=== PATIENT | male | born 1980 | race Caucasian/White ===

== ENCOUNTER 2019-08-16 08:28 | Emergency (ER) | payer OTHER ==
[~2019-08-16] VITALS: Ht 180.3 cm; Wt 104.3 kg
--- NOTE | 2019-08-16 08:31 | NUR ---
pt ambulatory to er bed 01 c/o diffuse abdominal pain w/ nausea and vomiting. cough and congestion since friday. afebrile. placed on monitor. vss. awaiting md perez.
--- NOTE | 2019-08-16 08:42 | NUR ---
dr sood at bedside for eval.
[2019-08-16] MEDS ORDERED: ONDANSETRON HCL/PF 4 MG/2 ML VIAL ONE (08:46)
[2019-08-16] MEDS ORDERED: KETOROLAC TROMETHAMINE INJ 30 MG/ML VIAL ONE (08:46)
[2019-08-16 08:58] LABS: BASOPHILS % (AUTO) 0.5 % (0.0-2.0); HEMATOCRIT 46 % (39-51); HEMOGLOBIN 15.5 g/dL (13.5-17.5); LYMPHOCYTES # (AUTO) 0.7 /CMM (0.8-4.8); MEAN CORPUSCULAR HGB CONC 34 g/dl (31.0-36.0); MEAN CORPUSCULAR VOLUME 90 fL (80-96); MONOCYTES # (AUTO) 0.8 /CMM (0.1-1.30); MONOCYTES % (AUTO) 16.8 % (2.0-12.0); NEUTROPHILS # (AUTO) 3.3 /CMM (1.8-8.9); NEUTROPHILS % (AUTO) 68.7 % (43.0-81.0); PLATELET COUNT (AUTO) 194 /CMM (150-450); RED BLOOD CELL COUNT(AUTO) 5.08 MIL/uL (4.5-6.0); WHITE BLOOD COUNT (AUTO) 4.8 K/uL (4.3-11.0)
--- NOTE | 2019-08-16 08:58 | NUR ---
radiology at bedside for chest xray.
[2019-08-16] MEDS ORDERED: IV NS 0.9% 1,000 ML BAG IV ONE (09:00)
[2019-08-16] MEDS ORDERED: ONDANSETRON HCL/PF 4 MG/2 ML VIAL IVP ONE (09:00)
[2019-08-16] MEDS ORDERED: KETOROLAC TROMETHAMINE INJ 30 MG/ML VIAL IV ONE (09:00)
[2019-08-16 09:04] LABS: CALCIUM, SERUM 9.2 mg/dL (8.5-10.1); CREATININE 1.3 mg/dL (0.6-1.3); POTASSIUM 3.6 mmol/L (3.5-5.1)
[2019-08-16 09:10] LABS: ALBUMIN 4.5 g/dL (3.4-5.0); BILIRUBIN,DIRECT 0.1 mg/dL (0.0-0.2); BILIRUBIN,TOTAL 0.6 mg/dL (0.2-1.0); TOTAL PROTEIN, SERUM 7.7 g/dL (6.4-8.2)
[2019-08-16 09:17] LABS: LYMPHOCYTES % (MANUAL) 15 % (16-48); MONOCYTES % (MANUAL) 14 % (0-11.0); NEUTROPHILS % (MANUAL) 71 (42-76)
[2019-08-16 09:59] VITALS: BP 154/99
--- NOTE | 2019-08-16 09:59 | NUR ---
Patient discharged to home in stable condition. Written and verbal after care instructions given. Patient verbalizes understanding of instruction.IV removed. Catheter intact and site benign. Pressure and 4x4 applied to site. No bleeding noted.
== END 2019-08-16 10:00 | disposition home or self-care (01) ==
LOC: ER 08:32
DX: J10.1 Influenza due to other identified influenza virus with other respiratory manifestations (principal); R11.2 Nausea with vomiting, unspecified; Z88.0 Allergy status to penicillin; Z88.8 Allergy status to other drugs, medicaments and biological substances; Z88.5 Allergy status to narcotic agent
CPT/HCPCS: 36415; 71045; 80048; 80076; 83690; 85025; 87804 ×2; 96361; 96374; 96375; 99284; J1885; J2405; J7030

== ENCOUNTER 2019-09-08 20:39 | Emergency (ER) | payer OTHER ==
[~2019-09-08] VITALS: Ht 177.8 cm; Wt 108.9 kg
--- NOTE | 2019-09-08 20:39 | NUR ---
CAME IN FOR L GREAT TO PAIN WITH REDNESS AND SWELLING S/P 200LB TRUNK FELL ON TOE, TO ER BED 6, HOOKED TO MONITOR, AWAITING MD RICO
--- NOTE | 2019-09-08 21:00 | NUR ---
HOME SERVICE CONSULTANT DEGRASSE AT BEDSIDE
--- NOTE | 2019-09-08 21:14 | NUR ---
ESCROW ASSISTANT AT BEDSIDE
--- NOTE | 2019-09-08 22:11 | NUR ---
tech at bedside for wound care
--- NOTE | 2019-09-08 22:14 | NUR ---
Patient discharged to home in stable condition. Written and verbal after care instructions given. Patient verbalizes understanding of instruction.
[2019-09-08 22:23] VITALS: BP 157/109
== END 2019-09-08 22:24 | disposition home or self-care (01) ==
LOC: ER 20:39
DX: S90.212A Contusion of left great toe with damage to nail, initial encounter (principal); I10 Essential (primary) hypertension; Z88.0 Allergy status to penicillin; Z88.5 Allergy status to narcotic agent; Z88.8 Allergy status to other drugs, medicaments and biological substances; W20.8XXA Other cause of strike by thrown, projected or falling object, initial encounter; Y93.89 Activity, other specified; Y92.89 Other specified places as the place of occurrence of the external cause; Y99.8 Other external cause status
CPT/HCPCS: 11740; 73660; 99283; A6403

== ENCOUNTER 2020-11-21 05:17 | Emergency (ER) | payer OTHER ==
[~2020-11-21] VITALS: Ht 177.8 cm; Wt 115.7 kg
--- NOTE | 2020-11-21 06:11 | NUR ---
PT AAOX4. AMBULATORY WITH STEADY GAIT. C/O VOMITING X2 DAYS. PT PLACED IN BED 9 ON MONITOR AND PULSE OX. IV RAC 18G, BLOOD WORK COLLECTED, SENT TO LAB. AWAITING ER MD FOR EVAL AND ORDERS.
[2020-11-21] MEDS ORDERED: ONDANSETRON HCL/PF 4 MG/2 ML VIAL IVP ONE (06:30)
[2020-11-21] MEDS ORDERED: IV NS 0.9% 1,000 ML BAG IV ONE (06:30)
[2020-11-21] MEDS ORDERED: ONDANSETRON HCL/PF 4 MG/2 ML VIAL ONE ×2 (06:30→10:01)
--- NOTE | 2020-11-21 06:45 | NUR ---
URINE COLLECTED, SENT TO LAB.
[2020-11-21 07:02] LABS: BASOPHILS % (AUTO) 0.3 % (0.0-2.0); EOSINOPHILS % (AUTO) 0.4 % (0.0-6.0); HEMATOCRIT 44 % (39-51); HEMOGLOBIN 14.6 g/dL (13.5-17.5); LYMPHOCYTES # (AUTO) 1.1 /CMM (0.8-4.8); MEAN CORPUSCULAR HGB CONC 33 g/dl (31.0-36.0); MEAN CORPUSCULAR VOLUME 91 fL (80-96); MONOCYTES # (AUTO) 0.6 /CMM (0.1-1.30); MONOCYTES % (AUTO) 11.1 % (2.0-12.0); NEUTROPHILS # (AUTO) 3.9 /CMM (1.8-8.9); NEUTROPHILS % (AUTO) 69.2 % (43.0-81.0); PLATELET COUNT (AUTO) 234 /CMM (150-450); RED BLOOD CELL COUNT(AUTO) 4.88 MIL/uL (4.5-6.0); WHITE BLOOD COUNT (AUTO) 5.7 K/uL (4.3-11.0)
[2020-11-21 07:23] LABS: ALBUMIN 4.4 g/dL (3.4-5.0); BILIRUBIN,DIRECT 0.1 mg/dL (0.0-0.2); BILIRUBIN,TOTAL 0.5 mg/dL (0.2-1.0); CALCIUM, SERUM 9.3 mg/dL (8.5-10.1); CREATININE 1.3 mg/dL (0.6-1.3); POTASSIUM 3.8 mmol/L (3.5-5.1); TOTAL PROTEIN, SERUM 7.8 g/dL (6.4-8.2)
[2020-11-21 07:33] LABS: BILIRUBIN,URINE NEGATIVE (NEGATIVE); COLOR,URINE YELLOW (YELLOW); LEUKOCYTE ESTERASE ,URINE NEGATIVE (NEGATIVE); NITRITE, URINE NEGATIVE (NEGATIVE); PROTEIN,URINE NEGATIVE (NEGATIVE); UGLUCOSE NEGATIVE (NEGATIVE); UROBILINOGEN,URINE 0.2 EU/dL (0.2)
[2020-11-21 07:48] LABS: RBC,URINE 0-2 /HPF (0-2)
[2020-11-21 07:49] LABS: BACTERIA,URINE Rare /HPF (None Seen); CALCIUM OXALATE CRYSTALS,UR Many /HPF (None Seen); SQUAMOUS EPITHELIAL CELL,UR Rare /HPF (None Seen); WBC,URINE 0-2 /HPF (0-3)
[2020-11-21] MEDS ORDERED: IV NS 0.9% 1,000 ML IV ONE (10:00)
[2020-11-21] MEDS ORDERED: ONDANSETRON HCL/PF 4 MG/2 ML VIAL IV ONE (10:00)
[2020-11-21 10:38] VITALS: BP 128/75
--- NOTE | 2020-11-21 10:38 | NUR ---
Patient discharged to home in stable condition. Written and verbal after care instructions given. Patient verbalizes understanding of instruction. The patient left ER in stable condition.
== END 2020-11-21 10:38 | disposition home or self-care (01) ==
LOC: ER 05:19
DX: K52.9 Noninfective gastroenteritis and colitis, unspecified (principal); K57.30 Diverticulosis of large intestine without perforation or abscess without bleeding; R11.2 Nausea with vomiting, unspecified; E88.89 Other specified metabolic disorders; K44.9 Diaphragmatic hernia without obstruction or gangrene; N28.1 Cyst of kidney, acquired; I10 Essential (primary) hypertension; Z88.0 Allergy status to penicillin; Z88.5 Allergy status to narcotic agent; Z88.8 Allergy status to other drugs, medicaments and biological substances
CPT/HCPCS: 36415; 74176; 76770; 80048; 80076; 81001; 83690; 85025; 96361; 96374; 96376; 99285; J2405 ×2; J7030 ×2

== ENCOUNTER 2021-10-22 13:51 | Inpatient (IN) | payer BC, OTHER ==
[~2021-10-22] VITALS: Ht 177.8 cm; Wt 116.1 kg
--- NOTE | 2021-10-22 14:10 | NUR ---
BIBSELF C/O LOWER ABD PAIN, NAUSEA&VOMITTING SINCE LAST NIGHT. AMBULATORY, IN PAIN
[2021-10-22] MEDS ORDERED: ONDANSETRON HCL/PF 4 MG/2 ML VIAL ONE (14:22)
--- NOTE | 2021-10-22 14:26 | NUR ---
R AC 20G ESTABLISHED. LABS DRAWN AND COLLECTED AT BEDSIDE. CONVERTED TO SALINE LOCK
[2021-10-22] MEDS ORDERED: IV NS 0.9% 1,000 ML BAG IV ONE (14:30)
[2021-10-22] MEDS ORDERED: ONDANSETRON HCL/PF 4 MG/2 ML VIAL IVP ONE (14:30)
[2021-10-22 14:39] LABS: BASOPHILS % (AUTO) 0.2 % (0.0-2.0); EOSINOPHILS % (AUTO) 0.1 % (0.0-6.0); HEMATOCRIT 43 % (39-51); HEMOGLOBIN 14.1 g/dL (13.5-17.5); LYMPHOCYTES # (AUTO) 1.5 K/uL (0.8-4.8); LYMPHOCYTES % (AUTO) 8.6 % (20.0-44.0); MEAN CORPUSCULAR HGB CONC 33 g/dl (31.0-36.0); MEAN CORPUSCULAR VOLUME 90 fL (80-96); MONOCYTES # (AUTO) 1.3 K/uL (0.1-1.30); MONOCYTES % (AUTO) 7.3 % (2.0-12.0); NEUTROPHILS # (AUTO) 14.4 K/uL (1.8-8.9); NEUTROPHILS % (AUTO) 83.8 % (43.0-81.0); PLATELET COUNT (AUTO) 244 K/uL (150-450); RED BLOOD CELL COUNT(AUTO) 4.78 MIL/uL (4.5-6.0); WHITE BLOOD COUNT (AUTO) 17.2 K/uL (4.3-11.0)
[2021-10-22 14:50] LABS: CREATININE 1.4 mg/dL (0.6-1.3); POTASSIUM 3.8 mmol/L (3.5-5.1)
[2021-10-22 14:55] LABS: ALBUMIN 4.1 g/dL (3.4-5.0); BILIRUBIN,DIRECT 0.2 mg/dL (0.0-0.2); BILIRUBIN,TOTAL 1.3 mg/dL (0.2-1.0); TOTAL PROTEIN, SERUM 7.5 g/dL (6.4-8.2)
--- NOTE | 2021-10-22 15:50 | NUR ---
PATIENT STILL VOMITING. MD INFORMED.
[2021-10-22] MEDS ORDERED: PROCHLORPERAZINE EDISYLATE 10 MG/2 ML VIAL ONE (15:54)
[2021-10-22] MEDS ORDERED: CIPROFLOXACIN IV RTU 400 MG in PREMIX 1 EA IV SCH (16:00)
[2021-10-22] MEDS ORDERED: PROCHLORPERAZINE EDISYLATE 10 MG/2 ML VIAL IVP ONE (16:00)
[2021-10-22] MEDS ORDERED: AMLO2.5T4 PO (16:05)
[2021-10-22] MEDS ORDERED: FAMO40TA7 PO (16:05)
[2021-10-22] MEDS ORDERED: LISI-768 PO (16:05)
[2021-10-22 16:06] LABS: BILIRUBIN,URINE NEGATIVE (NEGATIVE); COLOR,URINE YELLOW (YELLOW); LEUKOCYTE ESTERASE ,URINE NEGATIVE (NEGATIVE); NITRITE, URINE NEGATIVE (NEGATIVE); PROTEIN,URINE TRACE mg/dl (NEGATIVE); UGLUCOSE NEGATIVE (NEGATIVE); UROBILINOGEN,URINE 0.2 EU/dL (0.2)
--- NOTE | 2021-10-22 16:10 | NUR ---
PAGED DR. ALAN
[2021-10-22 16:13] LABS: BACTERIA,URINE RARE /HPF (None Seen); WBC,URINE 0-2 /HPF (0-3)
[2021-10-22 16:14] LABS: MUCUS,URINE Few /LPF (None Seen); SQUAMOUS EPITHELIAL CELL,UR 0-2 /HPF (None Seen)
[2021-10-22] MEDS: METRONIDAZOLE 500MG/ NS 100ML 500 MG in PREMIX 1 EA IV SCH ×2 (16:30→23:05)
[2021-10-22] MEDS ORDERED: Z GUARD REMEDY 4 OZ OINT TP PRN (16:30)
--- NOTE | 2021-10-22 16:31 | NUR ---
COVID SWAB DONE AND SENT TO THE LAB.
--- NOTE | 2021-10-22 17:00 | NUR ---
LACTIC ACID 2.8, MADE DR URIBE AWARE
--- NOTE | 2021-10-22 17:05 | NUR ---
BED 306-1 PER NURSING SUP. FRONT ADMIN NOTIFIED.
--- NOTE | 2021-10-22 18:21 | NUR ---
REPORT GIVEN TO NURSE RASMUSSEN FOR ASIA
--- NOTE | 2021-10-22 18:30 | NUR ---
THE PATIENT IS TRANSFERED TO ROOM 306-1 IN STABLE CONDITION AND PER POLICY.
--- NOTE | 2021-10-22 18:45 | NUR ---
MS RN ADMITTING NOTES RECEIVIED PATIENT FROM ER. MEDICALLY STABLE. VS BP: 162/88 HR 80 T 98.0 O2 97% MILD ABDOMINAL PAIN AT THIS TIME. WILL ENDORSE TO GIFT BASKET PACKER NURSE FOR ASIA.
--- NOTE | 2021-10-22 19:30 | NUR ---
MS RN ADMITTING NOTES PT RECEIVED I BED ASLEEP BUT EASILY WOKEN UP. PT A/O X4 NO RESPIRATORY DISTRESS NOTED. NO PAIN OR DISCOMFORT NOTED AT THIS TIME. ON ROOM AIR TOLERATING WELL. PT ABLE TO AMBULATE WITH STEADY GAIT. PT REFUSED SKIN ASSESSMENT DENIES ANY DISCOLORATION OR WOUNDS. PT ORDER FOR NPO PT AWARE. PT STARTED ON NS @125ML/HR PT HAS IV ACCESS ON THE LAC 20G INTACT. FLUSHING WELL. PT ORIENTED TO ROOM AND UNIT. INSTRUCTED ON HOW TO USE CALL LIGHT CALL LIGHT PLACED WITHIN REACH. PT CONFIRMED ONLY MEDICAL HX IS HTN PT CONFIRMED ALLERGIES. PT FOR SX EVALUATION TOMORROW. ALL NEEDS MET AT THIS TIME. WILL CONTINUE TO MONITOR.
[2021-10-22 20:00] VITALS: BP 114/72
--- NOTE | 2021-10-22 20:47 | NUR ---
MS RN NOTES PT SEEN BY DR ALAN ,PER DR ALAN OK TO HAVE MINIMAL AMOUNT OF ICE CHIPS (ONE CUP EVERY 8HRS IS OKAY). WILL CONTINUE TO MONITOR.
--- NOTE | 2021-10-22 20:51 | NUR ---
MS RN NOTES SPOKE TO DR BLAKE DERMENDIAN REGARDING PT CODEINE ALLERGY AND THE MORPHINE PRESCRIPTION VERIFIED WITH PT HE HAS RECEIVED MORPHINE IN THE PAST WITH NO ISSUES AND CODEINE ALLERGY REACTIONS REPORTED TO DR. PER DR HAYDEN MORALES TO GIVE MORPHINE CALLED PHARMACY AND LET THEM KNOW. WILL CONTINUE TO MONITOR.
[2021-10-23] MEDS: CIPROFLOXACIN IV RTU 400 MG in PREMIX 1 EA IV SCH ×2 (04:43→17:15)
[2021-10-23] MEDS: ONDANSETRON HCL/PF 4 MG/2 ML VIAL IVP PRN ×3 (05:29→20:02)
--- NOTE | 2021-10-23 05:35 | NUR ---
MS RN NOTES PRN ZOFRAN GIVEN FOR N/V TOLERATED WELL. WILL CONTINUE TO MONITOR.
[2021-10-23] MEDS: METRONIDAZOLE 500MG/ NS 100ML 500 MG in PREMIX 1 EA IV SCH ×3 (05:55→20:02)
--- NOTE | 2021-10-23 06:29 | NUR ---
MS RN CLOSING NOTES PT A/O X4 NO RESPIRATORY DISTRESS NOTED. NO PAIN OR DISCOMFORT NOTED AT THIS TIME. ON ROOM AIR TOLERATING WELL. PT ABLE TO AMBULATE WITH STEADY GAIT. PT REFUSED SKIN ASSESSMENT DENIES ANY DISCOLORATION OR WOUNDS. PT ORDER FOR NPO PT AWARE. PT ON NS @125ML/HR PT HAS IV ACCESS ON THE LAC 20G INTACT. FLUSHING WELL. PT ORIENTED TO ROOM AND UNIT. INSTRUCTED ON HOW TO USE CALL LIGHT CALL LIGHT PLACED WITHIN REACH. TABLE WITHIN REACH. ALL NEEDS MET AT THIS TIME. WILL CONTINUE TO MONITOR. WILL ENDORSE CARE TO DAY SHIFT NURSE.
[2021-10-23 06:57] LABS: BASOPHILS % (AUTO) 0.1 % (0.0-2.0); HEMATOCRIT 38 % (39-51); HEMOGLOBIN 12.7 g/dL (13.5-17.5); MEAN CORPUSCULAR HGB CONC 33 g/dl (31.0-36.0); MEAN CORPUSCULAR VOLUME 89 fL (80-96); MONOCYTES # (AUTO) 0.8 K/uL (0.1-1.30); MONOCYTES % (AUTO) 5.7 % (2.0-12.0); NEUTROPHILS # (AUTO) 12.7 K/uL (1.8-8.9); NEUTROPHILS % (AUTO) 87.2 % (43.0-81.0); PLATELET COUNT (AUTO) 206 K/uL (150-450); RED BLOOD CELL COUNT(AUTO) 4.27 MIL/uL (4.5-6.0); WHITE BLOOD COUNT (AUTO) 14.6 K/uL (4.3-11.0)
[2021-10-23 07:12] LABS: ALBUMIN 3.3 g/dL (3.4-5.0); BILIRUBIN,TOTAL 1.1 mg/dL (0.2-1.0); CREATININE 1.1 mg/dL (0.6-1.3); POTASSIUM 3.5 mmol/L (3.5-5.1); TOTAL PROTEIN, SERUM 6.6 g/dL (6.4-8.2)
--- NOTE | 2021-10-23 07:28 | NUR ---
MS RN OPENING NOTES PATIENT RECEIVED AWAKE IN BED IN NO ACUTE SIGNS OF DISTRESS. A/OX4, ABLE TO MAKE NEEDS KNOWN, DENIES PAIN OR ANY DISCOMFORTS AT THIS TIME. NPO MAINTAINED. ON ROOM AIR, TOLERATING WELL, BREATHING EVEN AND UNLABORED. IV ACCESS ON L AC #20G INTACT AND PATENT WITH IVF OF NS @ 125ML/HR INFUSING WELL, NO S/S OF INFILTRATIONS NOTED. SAFETY PRECAUTIONS MAINTAINED; BED LOCKED AND IN LOW POSITION, SIDE RAILS X2 UP AND CALL LIGHT WITHIN REACH. CONTINUE TO MONITOR PT ACCORDINGLY.
[2021-10-23 08:00] VITALS: BP 184/96
[2021-10-23] MEDS: LISINOPRIL (5MG) 5 MG TABLET PO SCH (08:39)
[2021-10-23] MEDS: AMLODIPINE BESYLATE 2.5 MG TABLET PO SCH (08:39)
[2021-10-23] MEDS: FAMOTIDINE (20 MG) 20 MG TABLET PO SCH (08:39)
--- NOTE | 2021-10-23 10:51 | NUR ---
RN NOTES DR ANDREWS WITH ORDER TO PUT PT ON NPO EXCEPT ORAL MEDS WITH SIP OF WATER.
[2021-10-23] MEDS: MORPHINE SULFATE INJ 2 MG/ML DISP.SYRIN IV PRN ×3 (12:02→22:41)
--- NOTE | 2021-10-23 12:04 | NUR ---
RN NOTES PT C/O BURNING ACHING MID LOWER ABDOMINAL PAIN, 8/10 SCALE WITH NAUSEA, PRN MORPHINE 1 MG/0.5ML IVP AND ZOFRAN 4MG/2NL ADMINISTERED ORDERED. WILL CONTINUE TO MONITOR AND REASSESS PT
[2021-10-23 15:53] VITALS: BP 150/83
[2021-10-23] MEDS: IV NS 0.9% 1,000 ML IV PRN (17:12)
--- NOTE | 2021-10-23 17:13 | NUR ---
RN NOTES PT C/O SHARP ACHING MID LOWER ABDOMINAL PAIN, 10/10 SCALE , PRN MORPHINE 1 MG/0.5ML IVP ADMINISTERED AT 1711. WILL CONTINUE TO MONITOR AND REASSESS PT.
--- NOTE | 2021-10-23 18:53 | NUR ---
MS RN CLOSING NOTES PATIENT IN BED WATCHING TV AT THIS TIME. A/OX4, ABLE TO MAKE NEEDS KNOWN. NPO EXCEPT MEDS MAINTAINED, PT IS AWARE. ON ROOM AIR, TOLERATING WELL, BREATHING EVEN AND UNLABORED. IV ACCESS ON L AC #20G INTACT AND PATENT, IVF OF NS @ 125ML/HR INFUSING WELL, NO S/S OF INFILTRATIONS NOTED. ALL NEEDS AND CARE ATTENDED WELL. SAFETY PRECAUTIONS MAINTAINED; BED LOCKED AND IN LOW POSITION, SIDE RAILS UP X2 UP AND CALL LIGHT WITHIN REACH. WILL ENDORSE ASIA TO [employer] AND SERVICE DIRECTOR NURSE.
--- NOTE | 2021-10-23 19:10 | NUR ---
MS RN OPENING NOTES: RECEIVED PATIENT IN BED, AWAKE, A/O X4. NO S/S OF DISTRESS NOTED. NO COMPLAIN OF PAIN. CALL LIGHT WITHIN REACH. BEDIN LOWEST AND LOCKED POSITION. URINAL AT THE BEDSIDE. NPO EXCEPT MEDS AND ICE CHIPS, PATIENT VERBALIZED UNDERSTANDING.
[2021-10-23 20:04] VITALS: BP 167/94
--- NOTE | 2021-10-23 20:15 | NUR ---
COMPLAINED OF NAUSEA, PRN ZOFRAN IV GIVEN.
--- NOTE | 2021-10-23 22:58 | NUR ---
right hand IV G22 inserted by CHARGE NURSE JUAN J.
[2021-10-24] MEDS: ACETAMINOPHEN 325 MG TABLET PO PRN ×2 (03:53→20:37)
[2021-10-24] MEDS: IV NS 0.9% 1,000 ML IV PRN ×2 (05:42→20:17)
[2021-10-24] MEDS: CIPROFLOXACIN IV RTU 400 MG in PREMIX 1 EA IV SCH ×2 (05:43→16:39)
[2021-10-24] MEDS: METRONIDAZOLE 500MG/ NS 100ML 500 MG in PREMIX 1 EA IV SCH ×3 (06:52→20:15)
--- NOTE | 2021-10-24 07:20 | NUR ---
MS RN OPENING NOTES PATIENT RECEIVED ASLEEP IN BED IN NO ACUTE SIGNS OF DISTRESS. PATIENT IS EASILY AWAKEN. A/OX4, ABLE TO MAKE NEEDS KNOWN, DENIES PAIN OR ANY DISCOMFORTS AT THIS TIME. NPO MAINTAINED. ON ROOM AIR, TOLERATING WELL, BREATHING EVEN AND UNLABORED. IV ACCESS ON R HAND #20G INTACT AND PATENT WITH IVF OF NS @ 125ML/HR INFUSING WELL, NO S/S OF INFILTRATIONS NOTED. SAFETY PRECAUTIONS MAINTAINED; BED LOCKED AND IN LOW POSITION, SIDE RAILS X2 UP AND CALL LIGHT WITHIN REACH. WILL CONTINUE TO MONITOR PT ACCORDINGLY.
[2021-10-24] MEDS: ONDANSETRON HCL/PF 4 MG/2 ML VIAL IVP PRN (07:52)
[2021-10-24 08:00] VITALS: BP 152/87
--- NOTE | 2021-10-24 08:00 | NUR ---
Patient complained of nausea and vomiting. Per patient he vomited 2 times continuously. Patient was given Zofran IVP at 4mg/2ml as ordered PRN at 0752. Will continue to monitor and reassess patient.
[2021-10-24] MEDS: AMLODIPINE BESYLATE 2.5 MG TABLET PO SCH (08:29)
[2021-10-24] MEDS: LISINOPRIL (5MG) 5 MG TABLET PO SCH (08:29)
[2021-10-24] MEDS: FAMOTIDINE (20 MG) 20 MG TABLET PO SCH (08:33)
--- NOTE | 2021-10-24 10:29 | NUR ---
PATIENT WAS SEEN BY DR. ANDREWS. PATIENT REQUESTED IF HE CAN HAVE ANOTHER ANTIEMETIC MEDICATION IN ADDITION TO THE ORDERED ZOFRAN. DR. ANDREWS ORDERED REGLAN 10MG IV Q6HRS PRN.
[2021-10-24] MEDS: METOCLOPRAMIDE HCL 10 MG/2 ML VIAL IV PRN ×2 (12:14→20:15)
--- NOTE | 2021-10-24 12:16 | NUR ---
Patient complained of nausea and vomiting. Patient was given Reglan 10mg IVP at 1214 as ordered PRN. Will continue to monitor and reassess patient.
[2021-10-24 13:00] LABS: BASOPHILS % (AUTO) 0.1 % (0.0-2.0); EOSINOPHILS % (AUTO) 0.1 % (0.0-6.0); HEMATOCRIT 38 % (39-51); HEMOGLOBIN 12.6 g/dL (13.5-17.5); LYMPHOCYTES % (AUTO) 6.7 % (20.0-44.0); MEAN CORPUSCULAR HGB CONC 33 g/dl (31.0-36.0); MEAN CORPUSCULAR VOLUME 90 fL (80-96); MONOCYTES # (AUTO) 0.9 K/uL (0.1-1.30); MONOCYTES % (AUTO) 6.6 % (2.0-12.0); NEUTROPHILS # (AUTO) 12.4 K/uL (1.8-8.9); NEUTROPHILS % (AUTO) 86.5 % (43.0-81.0); PLATELET COUNT (AUTO) 200 K/uL (150-450); RED BLOOD CELL COUNT(AUTO) 4.25 MIL/uL (4.5-6.0); WHITE BLOOD COUNT (AUTO) 14.3 K/uL (4.3-11.0)
[2021-10-24] MEDS: MORPHINE SULFATE INJ 2 MG/ML DISP.SYRIN IV PRN (14:21)
--- NOTE | 2021-10-24 14:23 | NUR ---
Patient complained of pain in the lower abdomen with a pain scale level of 9/10. Patient was given morphine 1mg IVP at 1421 as ordered PRN. Will continue to monitor and reassess patient.
--- NOTE | 2021-10-24 14:55 | NUR ---
RN NOTES PATIENT'S COMPLAINED OF SLIGHT DISCOMFORT IN HIS RIGHT HAND AND REQUESTED TO REMOVE RIGHT HAND IV ACCESS AND CHANGE THE SITE. REMOVED IV ACCESS IN THE RIGHT HAND WITH NO BLEEDING NOTED. NEW IV ACCESS INSERTED IN LEFT HAND GAUGE #22. IVF CONTINUED ORDERED.
--- NOTE | 2021-10-24 15:21 | NUR ---
RN NOTES PT STATED THAT HE'S ABDOMINAL PAIN MORE SEVERE THAN USUAL AND ABDOMEN MORE DISTENDED THIS AFTERNOON. DR ANDREWS MADE AWARE WITH ORDER TO DO REPEAT CT OF ABDOMEN AND PELVIS W/O CONTRAST.
--- NOTE | 2021-10-24 15:28 | NUR ---
RN NOTES PT PICKED-UP VIA WHEELCHAIR FOR CT ABD AND PELVIS.
[2021-10-24 16:00] VITALS: BP 161/90
--- NOTE | 2021-10-24 18:31 | NUR ---
MS RN CLOSING NOTES PATIENT IN ASLEEP IN BED. EASILY AWAKEN. A/OX4, ABLE TO MAKE NEEDS KNOWN. NPO EXCEPT MEDS MAINTAINED, PT IS AWARE. ON ROOM AIR, TOLERATING WELL, BREATHING EVEN AND UNLABORED. IV ACCESS ON L HAND #22G INTACT AND PATENT, IVF OF NS @ 125ML/HR INFUSING WELL, NO S/S OF INFILTRATIONS NOTED. ALL NEEDS AND CARE ATTENDED WELL. SAFETY PRECAUTIONS MAINTAINED; BED LOCKED AND IN LOW POSITION, SIDE RAILS UP X2 UP AND CALL LIGHT WITHIN REACH. WILL ENDORSE ASIA TO MANAGER LABOR RELATIONS NURSE.
--- NOTE | 2021-10-24 19:08 | NUR ---
RN NOTES PT REQUESTED IF HE CAN HAVE SOME MEDICATION TO HELP HIM SLEEP AT NIGHT. DR ANDREWS MADE AWARE WITH ORDER TO GIVE ATIVAN 2MG PO AT BEDTIME PRN. WILL ENDORSE TO CLAM DREDGE BOAT CAPTAIN NURSE.
--- NOTE | 2021-10-24 19:15 | NUR ---
MS RN OPENING NOTES: RECEIVED PATIENT IN BED, AWAKE, A/O X4. NO S/S OF DISTRESS NOTED. NO COMPLAIN OF PAIN. CALL LIGHTWITHIN REACH. BED IN LOWEST AND LOCKED POSITION. NAUSEOUS.
[2021-10-24] MEDS ORDERED: LORAZEPAM 1 MG TABLET PO PRN (19:30)
[2021-10-24 20:00] VITALS: BP_SYST 142; BP_SYST 172; BP_DIAS 76; BP_DIAS 96
[2021-10-25] MEDS: CIPROFLOXACIN IV RTU 400 MG in PREMIX 1 EA IV SCH ×2 (05:44→16:25)
[2021-10-25] MEDS: IV NS 0.9% 1,000 ML IV PRN (05:56)
[2021-10-25] MEDS: METRONIDAZOLE 500MG/ NS 100ML 500 MG in PREMIX 1 EA IV SCH ×2 (06:42→12:49)
[2021-10-25 06:45] LABS: BASOPHILS % (AUTO) 0.2 % (0.0-2.0); EOSINOPHILS % (AUTO) 0.2 % (0.0-6.0); HEMATOCRIT 37 % (39-51); HEMOGLOBIN 12.4 g/dL (13.5-17.5); LYMPHOCYTES # (AUTO) 0.9 K/uL (0.8-4.8); LYMPHOCYTES % (AUTO) 7.6 % (20.0-44.0); MEAN CORPUSCULAR HGB CONC 34 g/dl (31.0-36.0); MEAN CORPUSCULAR VOLUME 89 fL (80-96); MONOCYTES # (AUTO) 0.8 K/uL (0.1-1.30); MONOCYTES % (AUTO) 7.6 % (2.0-12.0); NEUTROPHILS # (AUTO) 9.4 K/uL (1.8-8.9); NEUTROPHILS % (AUTO) 84.4 % (43.0-81.0); PLATELET COUNT (AUTO) 207 K/uL (150-450); RED BLOOD CELL COUNT(AUTO) 4.14 MIL/uL (4.5-6.0); WHITE BLOOD COUNT (AUTO) 11.2 K/uL (4.3-11.0)
[2021-10-25 07:23] LABS: MAGNESIUM 2.4 mg/dL (1.8-2.4); PHOSPHORUS 2.4 mg/dL (2.5-4.9); POTASSIUM 3.6 mmol/L (3.5-5.1)
--- NOTE | 2021-10-25 07:33 | NUR ---
MS RN OPENING NOTES: RECEIVED PATIENT IN BED, SLEEPING A/O X4. NO SIGN SOB/DISTRESS NOTED.NS RUNNING @125ML/HR @ LHAND #22 IV SITE INTACT. NO COMPLAIN OF PAIN/DISCOMFORT AT THIS TIME. CALL LIGHTWITHIN REACH. BED IN LOWEST AND LOCKED POSITION. WILL CONTINUE TO MONITOR.
[2021-10-25 08:00] VITALS: BP 149/95
[2021-10-25] MEDS: FAMOTIDINE (20 MG) 20 MG TABLET PO SCH (08:18)
[2021-10-25] MEDS: AMLODIPINE BESYLATE 2.5 MG TABLET PO SCH (08:20)
[2021-10-25] MEDS: LISINOPRIL (5MG) 5 MG TABLET PO SCH (08:20)
--- NOTE | 2021-10-25 09:07 | NUR ---
RN NOTE PATIENT PULLED IV OUT ACCIDENTALLY, REINSERTED NEW IV ON RAC # 20 GAUGE PATENT AND INTACT.
[2021-10-25 16:00] VITALS: BP 156/89
[2021-10-25] MEDS ORDERED: K PHOS NEUTRAL 250 MG TABLET PO ONE (16:30)
[2021-10-25] MEDS: METOCLOPRAMIDE HCL 10 MG/2 ML VIAL IV PRN (18:10)
--- NOTE | 2021-10-25 18:32 | NUR ---
MS RN CLOSING NOTES PATIENT RESTING IN BED. A/OX4, ABLE TO MAKE NEEDS KNOWN. NPO EXCEPT MEDS MAINTAINED, PT IS AWARE. PATIENT IS BREATHING EVENLY AND NONLABORED ON ROOM AIR, TOLERATING WELL, BREATHING EVEN AND UNLABORED. IV ACCESS ON RAC #20 GAUGE INTACT AND PATENT, IVF OF NS @ 125ML/HR INFUSING WELL, NO S/S OF INFILTRATIONS NOTED. PATIENT NOTED WITH X 1 EPISODE OF VOMITING, ANT[place] MEDICATION GIVEN. ALL MEDICATIONS GIVEN SAFETY PRECAUTIONS MAINTAINED; BED LOCKED AND IN LOW POSITION, SIDE RAILS UP X2 UP AND CALL LIGHT WITHIN REACH. WILL ENDORSE TO ONCOMING SHIFT
[2021-10-25 20:00] VITALS: BP 151/80
[2021-10-25] MEDS ORDERED: METRONIDAZOLE 500 MG TABLET PO SCH (21:00)
--- NOTE | 2021-10-25 21:09 | NUR ---
MS/TELE/RN PATIENT REPORTS IV WAS OUT. PATIENT WAS SEEN EARLIER AMBULATING IN HALLWAY WITH HIS IV POLE. INSERTED NEW IV AT RIGHT F/A G 22. PATIENT IS NOT COMPLAINING OF ANY PAIN, NO NAUSEA AT THIS TIME, WILL MONITOR.
--- NOTE | 2021-10-25 23:30 | NUR ---
MS/TELE/CELL GENETICIST NURSE RECEIVED A CALL EARLIER FROM [facility] INFORMING THAT BED WAS ALREADY AVAILABLE. CHARGE NURSE COORDINATED THE TRANSFER. TRANSFER WAS ORDERED BY . AMBULANCE ARRIVED ON THE FLOOR AT [facility]. I GAVE REPORT TO [facility] RNBRANDT. PATIENT IS GOING TO ROOM 8801. PATIENT SIGNED ALL THE NECESSARY TRANSFER PAPER WORKS. REPORT GIVEN TO EMT. ALL BELONGINGS SENT WITH THE PATIENT. DID NOT REMOVE IV. PATIENT LEFT THE FLOOR AT [facility]25 IN STABLE CONDITION.
== END 2021-10-25 23:30 | disposition short-term general hospital (02) | DRG 391 ==
LOC: ER 13:51 → MED 17:17
PROVIDERS: ADMIT Internal Medicine; ATTEND Nurse Practitioner Acute Care
DX: K57.20 Diverticulitis of large intestine with perforation and abscess without bleeding (principal); N17.0 Acute kidney failure with tubular necrosis; K65.8 Other peritonitis; E87.2 Acidosis; E86.0 Dehydration; E66.01 Morbid (severe) obesity due to excess calories; Z68.36 Body mass index [BMI] 36.0-36.9, adult; K44.9 Diaphragmatic hernia without obstruction or gangrene; K42.9 Umbilical hernia without obstruction or gangrene; I10 Essential (primary) hypertension; D72.829 Elevated white blood cell count, unspecified; E80.6 Other disorders of bilirubin metabolism; Z20.822 Contact with and (suspected) exposure to COVID-19
CPT/HCPCS: 36415; 80048-TC; 80053-TC; 80076-TC; 81001; 83605-TC; 83690-TC; 83735-TC; 84100-TC; 85025-TC; 87040-TC; 87081-TC; A4216; C9803; G0378; J0744; J0780; J2270; J2405; J2765; J7030